=== PATIENT | female | born 1995 | race Caucasian/White ===

== ENCOUNTER 2020-12-05 13:55 | Emergency (ER) | payer MEDICAID, SELFPAY ==
[2020-12-05 13:56] VITALS: BP 108/70; PULSE 106; RESP 20; TEMP 37.2; O2SAT 100; BMI 22.7
[2020-12-05 15:08] LABS: Microscopic, Urine URINE MICROSCOPIC (MICROSCOPIC)
[2020-12-05 15:11] LABS: Appearance,Urine CLOUDY (Clear); Bilirubin,Urine Negative (Negative); Blood, Urine 1+ (Negative); Color,Urine YELLOW (Yellow); Glucose,Urine (UA) Negative (Negative); Ketones,Urine Negative (Negative); Leukocyte Esterase,Urine 2+ (Negative); Nitrate,Urine POSITIVE (Negative); Protein,Urine 1+ (Negative); Urobilinogen,Urine 0.2 EU/dl (0.2)
--- NOTE | 2020-12-05 15:27 | [facility].EDGENADL ---
ED Disposition Clinical Impression: Left flank pain, Intravenous drug abuse, Left against medical advice Disposition: Left Against Medical Advice Condition on Discharge: Fair Instructions: DI for Acute Abdominal Pain Referrals: Provider,Referral, [Primary Care Provider] - - Critical Care Critical Care Time: No Attestation: On 12/05/20, the high probability of a clinically significant, sudden or life threatening deterioration of the following system(s) required my full and direct attention, intervention and personal management. The time I documented below is in addition to time spent performing reported procedures but includes the following listed in this critical care notation. Medical Decision Making - [facility] Inquiry Pt receiving controlled substance: No Vital Signs: 12/05/20 13:56 12/05/20 16:23 Temperature 99.0 F 99.0 F Temperature Source Oral Oral Pulse Rate 106 H Pulse Rate [Left] 106 H Respiratory Rate 20 20 Blood Pressure 108/70 L Blood Pressure [Right Arm] 108/70 L Blood Pressure Mean [Right Arm] 82 Blood Pressure Source Automatic Cuff Blood Pressure Source [Right Arm] Automatic Cuff Blood Pressure Position Supine Blood Pressure Position [Right Arm] Sitting 02 Sat by Pulse Oximetry 100 Oxygen Delivery Method Room Air Room Air - Lab Data Lab Results 12/05/20 14:27: Urine Color Yellow, Urine Appearance Cloudy, Urine pH 7.0, Ur Specific [place] 1.020, Urine Protein 1+, Urine Glucose (UA) Negative, Urine Ketones Negative, Urine Blood 1+, Urine Nitrate Positive, Urine Bilirubin Negative, Urine Urobilinogen 0.2, Ur Leukocyte Esterase 2+ A, Urine RBC None, Urine WBC 3-5, Ur Squamous Epith Cells Occasional, Urine Bacteria Trace 12/05/20 14:27: Urine HCG, Qual Negative Orders (Tests/Meds): ORDERS Category Date Time Status CT abdomen pelvis w con Stat Cat Scan 12/05/20 15:35 Ordered Complete Blood Count Auto Diff Stat Lab 12/05/20 14:25 Ordered Comprehensive Metabolic Panel Stat Lab 12/05/20 14:25 Ordered Lipase Stat Lab 12/05/20 15:35 Ordered Urine Culture Stat Micro 12/05/20 14:27 Received Medical Decision Narrative: 4:30 PM: Nurses report that patient refused any further evaluation or treatment and demanded to leave the department. She left AGAINST MEDICAL ADVICE. General Adult HPI - General Chief complaint: Abdominal Pain Stated complaint: left side swollen and sharp pains Time Seen by Provider: 12/05/20 15:27 Mode of Arrival: Ambulatory Limitations: No Limitations Description of Symptoms (Recalled from ER Triage Doc. by RN): patient complains of left sided flank pain since last night with nausea. pain is radiating to LLQ - History of Present Illness HPI narrative: Left lateral flank pain that began last night. Nausea, but no vomiting or diarrhea. Denies urinary symptoms. Last menses 2 days ago. No fever. Noted to have track medina on her arms, patient admits to IV drug use. States she uses heroin and last used this morning. She has a history of hepatitis C, untreated. Denies any other sequelae of IV drug use. She does not have a primary care provider. - Related Data Allergies Allergy/AdvReac Type Severity Reaction Status Date / Time amoxicillin [AMOXICILLIN] Allergy Unknown Unverified 05/10/17 14:02 Penicillins [PENICILLINS] Allergy Unknown Unverified 05/10/17 14:02 Sulfa (Sulfonamide Allergy Unknown Unverified 05/10/17 14:02 Antibiotics) [SULFA (SULFONAMIDE ANTIBIOTICS)] [facility] History - Hepatitis A Screen Drug use history?: No High risk sexual behaviors?: No History of sexually transmitted infection?: No Currently employed?: No Childcare worker?: No Do you have indoor plumbing?: Yes Do you have electricity?: Yes Attestation statement:: This patient has been screened for Hepatitis A risk factors. I have reviewed the patient's past medical history: Yes ROS Obtained: Yes All systems reviewed & no additional complaints
[2020-12-05 15:32] LABS: Bacteria,Urine Trace /lpf; Squamous Epithelial Cell,Urine Occasional #/hpf (0-5)
[2020-12-05 15:45] LABS: Urine Pregnancy, HCG Qual. Negative (Negative)
[2020-12-05 16:23] VITALS: BP 108/70; PULSE 106; RESP 20; TEMP 37.2; O2SAT 100
== END 2020-12-05 16:25 | disposition left against medical advice (07) ==
PROVIDERS: Emergency Provider Emergency Medicine
DX: R10.32 Left lower quadrant pain (principal); F19.10 Other psychoactive substance abuse, uncomplicated
CPT/HCPCS: 81001; 81025; 87086; 87088; 87186; 99281